=== PATIENT | female | born 1990 | race Two or more races ===

== ENCOUNTER 2018-09-12 20:00 | Emergency (ER) | payer OTHER ==
[~2018-09-12] VITALS: Ht 154.9 cm; Wt 61.2 kg
[2018-09-12 20:14] VITALS: BP 123/79
[2018-09-12] MEDS ORDERED: LORAZEPAM 1 MG TABLET ONE (20:25)
[2018-09-12] MEDS ORDERED: LORAZEPAM 1 MG TABLET PO ONE (20:30)
== END 2018-09-12 20:31 | disposition home or self-care (01) ==
LOC: ER 20:02
DX: F41.0 Panic disorder [episodic paroxysmal anxiety] (principal)